=== PATIENT | female | born 1995 | race Two or more races ===

== ENCOUNTER 2024-10-15 18:35 | Emergency (ER) | payer OTHER ==
[~2024-10-15] VITALS: Ht 152.4 cm; Wt 59.9 kg
[2024-10-15 19:04] VITALS: BP 101/59; TEMP 98.3
[2024-10-15] MEDS ORDERED: AMOX-430 PO (19:19)
[2024-10-15] MEDS ORDERED: PSEU-182 PO (19:19)
[2024-10-15 19:33] VITALS: O2SAT 100
== END 2024-10-15 19:53 | disposition home or self-care (01) ==
LOC: ER 18:45
DX: H66.92 Otitis media, unspecified, left ear (principal); R09.81 Nasal congestion; R05.9 Cough, unspecified